=== PATIENT | male | born 1985 | race Caucasian/White ===

== ENCOUNTER 2019-03-29 06:25 | Emergency (ER) | payer OTHER ==
[~2019-03-29] VITALS: Ht 157.5 cm; Wt 89.0 kg
[~2019-03-29 06:25] MED LIST: NAPR-985 PO
[2019-03-29 06:28] VITALS: BP 143/75; PULSE 75; RESP 18; Ht 157.5 cm; Wt 89.0 kg
== END 2019-03-29 07:52 | disposition home or self-care (01) ==
LOC: FTE 06:25
DX: K40.90 Unilateral inguinal hernia, without obstruction or gangrene, not specified as recurrent (principal)
CPT/HCPCS: 99282